=== PATIENT | male | born 1985 | race Caucasian/White ===

== ENCOUNTER 2018-06-28 05:26 | Emergency (ER) | payer OTHER ==
[~2018-06-28] VITALS: Ht 182.9 cm; Wt 104.3 kg
[2018-06-28] MEDS ORDERED: CARB200ER PO (05:49)
[2018-06-28] MEDS ORDERED: LEVE500 PO (05:50)
[2018-06-28] MEDS ORDERED: Augmentin 875-1 EACH PO (06:23)
== END 2018-06-28 06:33 | disposition home or self-care (01) ==
LOC: ER 05:26
DX: H66.92 Otitis media, unspecified, left ear (principal); J06.9 Acute upper respiratory infection, unspecified; Z79.899 Other long term (current) drug therapy
CPT/HCPCS: 99282